=== PATIENT | female | born 1975 | race American Indian/Alaskan Native ===

== ENCOUNTER 2020-10-14 05:56 | Day surgery (SDC) | payer OTHER ==
[2020-10-14] MEDS ORDERED: MIDAZOLAM 2 MG/2 ML INJ IV NR (06:00)
[2020-10-14] MEDS ORDERED: SCOPOLAMINE TRANSDERMAL PATCH 72 HR TD NR (06:00)
[2020-10-14] MEDS ORDERED: LACTATED RINGERS 1,000 ML IV SCH (06:00)
[2020-10-14] MEDS ORDERED: ACETAMINOPHEN 500 MG TAB PO SCH (06:00)
[2020-10-14] MEDS ORDERED: BACTERIOSTATIC SODIUM CHLORIDE 0.9% 30 ML VIAL INFILTRATI ONE (06:35)
--- NOTE | 2020-10-14 06:52 | Anesthesia Consultation ---
Anesthesia Consult and Med Hx Date of service: 10/14/20 - Airway Anesthetic Teeth Evaluation: Good ROM Head & Neck: Adequate Mental/Hyoid Distance: Adequate Mallampati Class: Class II Intubation Access Assessment: Good - Pulmonary Exam CTA: Yes - Cardiac Exam Cardiac Exam: RRR - Pre-Operative Health Status ASA Pre-Surgery Classification: ASA1 Proposed Anesthetic Plan: General - Hematic Hx Anemia: Yes
--- NOTE | 2020-10-14 06:53 | Anesthesia Day of Surgery ---
Anesthesia Day of Surgery - Day of Surgery Patient Examined: Yes Patient H&P Reviewed: Yes Patient is NPO: Yes
[2020-10-14] MEDS ORDERED: ceFAZolin/STERILE WATER 2 GM/20 ML SYRINGE IV NR (07:00)
[2020-10-14 07:01] LABS: Hematocrit 28.9 % (30.3-42.9); Hemoglobin 9.3 gm/dl (10.1-14.3)
[2020-10-14] MEDS ORDERED: HYDROmorphone 1 MG/1 ML INJ IV PRN (07:37)
[2020-10-14] MEDS ORDERED: HYDROcodone/ACETAMINOPHEN 5-325 MG TAB PO PRN (07:37)
[2020-10-14] MEDS ORDERED: ONDANSETRON 4 MG/2 ML INJ IV PRN (08:00)
[2020-10-14] MEDS ORDERED: SODIUM CHLORIDE 0.9% IRRIG SOLN 2000 ML IR ONE (08:01)
--- NOTE | 2020-10-14 09:57 | Post Anesthesia Evaluation ---
- Post Anesthesia Evaluation Patient Participated: Yes Airway Patent: Yes Stable Respiratory Function: Yes Nausea/Vomiting: No Temp > 96.8F: Yes Pain Manageable: Yes Adequeate Hydration: Yes Anesthesia Complications: No
--- NOTE | 2020-10-20 08:34 | Short Stay Summary ---
Short Stay Documentation Date of service: 10/14/20 Narrative H&P: Pt is a 45 year old female with a recent history of menorrhagia. Pt has had several syncopal episodes due to anemia and has required transfusion. She was also told that she has fibroids. - History Principal diagnosis: Menorrhagia H&P: obtained from office Past Medical History: anemia Past Surgical History: No surgical history, cholecystectomy Social history: - Allergies and Medications Current Medications: Allergies No Known Allergies Allergy (Verified 10/14/20 06:13) Active Medications Cefazolin Sodium (Ancef/Sterile Water 2 Gm/20 Ml) 2 gm in 20 mls @ 80 mls/hr IV PREOP NR; Protocol - Physical exam General appearance: no acute distress Lungs: Clear to auscultation, Normal air movement Breasts: deferred Heart: Regular rate, Normal S1, Normal S2 Gastrointestinal: normal, normoactive bowel sounds Female Genitourinary: deferred Rectal Exam: deferred Extremities: no ischemia, No edema - Brief post op/procedure progress note Date of procedure: 10/14/20 Pre-op diagnosis: Menorrhagia, Anemia, Fibroids Post-op diagnosis: same Procedure: NOvasure Endometrial ablation Anesthesia: MAC Findings: slightly enlarged uterus, no obvious intrauterine pathology Surgeon: JARET JACINTO Estimated blood loss: 50-100ml Pathology: none Condition: stable - Hospital course Hospital course: unremarkable - Disposition Disposition: DC-01 TO HOME OR SELFCARE Short Stay Discharge Plan Activity: advance as tolerated Weight Bearing Status: Weight Bear as Tolerated Diet: regular Additional Instructions: NOTHING PER VAGINA-NO SEX, NO DOUCHE, NO TAMPOONS, NO BATH. MAY SHOWER AND WASH HAIR. USE SANITARY PADS. REMOVE SCOPOLAMINE PATCH BEHIND RIGHT EAR IN 24-72 HOURS-USE GLOVES AND WASH HANDS. CALL FOR F/U APPT. MAY TAKE TORADOL FOR PAIN NEEDED AFTER 145PM. NORCO GIVEN AT [id number]) Forms: [facility]
--- NOTE | 2020-10-20 08:35 | Operative Report ---
Operative Report Operative Report: Pre Op Diagnosis: Menorrhagia, anemia, fibroid Post Op Diagnosis: Same Procedure: NovaSure endometrial ablation Surgeon: Ignacia Forman MD EBL: Less than 50 IVF: 1000 cc LR Urine output: l=6.5 w=3.4 dwqpq=539 sec=34 Specimen: None Complications: None Procedure: The patient returned to the OR with IV running and in place. She was given general anesthesia without difficulty. She was then placed in dorsolithotomy position and prepped and draped in normal sterile fashion. Her bladder was drained approximately 100 cc of clear yellow urine. Attention was then turned to the patient's vagina. A bivalve speculum placed in the vagina, the uterus was then identified and grasped with single-tooth tenaculum. It was then gently sounded to approximately 9 cm in length. It was then gently dilated up to approximately 21 mm. The hysteroscope was then introduced into the uterine cavity. It revealed shaggy thickened endometrium . The scope was then removed, and the NovaSure device was inserted. The ablation was performed with the following settings length 5 cm, width 4.1 cm, power 121 W. With a total ablation time of 1 minute 16 seconds. Once completed, all instruments removed from the patient's vagina. The patient tolerated the procedure well she was then awakened and taken recovery in stable condition. Sponge needle and instrument counts were correct 2. A second look was made using hysteroscope. There was excellent hemostasis.
== END 2020-10-14 05:57 | disposition home or self-care (01) ==
LOC: OR 05:56
PROVIDERS: ATTEND Obstetrics & Gynecology
DX: N92.0 Excessive and frequent menstruation with regular cycle (principal); D64.9 Anemia, unspecified; D25.9 Leiomyoma of uterus, unspecified; Z79.899 Other long term (current) drug therapy
CPT/HCPCS: 36415; 58563; 81025; 85014; 85018; A4217; J0690; J1100; J1885; J2250; J2405; J2704; J7120